=== PATIENT | male | born 1995 | race African-American/Black ===

== ENCOUNTER 2021-11-03 11:05 | Emergency (ER) | payer OTHER ==
[2021-11-03] MEDS ORDERED: ACETAMINOPHEN 500 MG TAB PO ONE (11:33)
[2021-11-03 12:03] LABS: Basophils # (Auto) 0.1 K/mm3 (0.0-0.1); Basophils % (Auto) 0.4 % (0.0-1.8); Eosinophils # (Auto) 0.1 K/mm3 (0.0-0.4); Eosinophils % (Auto) 0.8 % (0.0-4.3); Hematocrit 45.2 % (35.5-45.6); Hemoglobin 15.4 gm/dl (11.8-15.2); Lymphocytes # (Auto) 1.8 K/mm3 (1.2-5.4); Lymphocytes % (Auto) 13.2 % (13.4-35.0); Mean Corpuscular HGB Conc 34 % (32-34); Mean Corpuscular Volume 91 fl (84-94); Monocytes # (Auto) 1.2 K/mm3 (0.0-0.8); Monocytes % (Auto) 9.2 % (0.0-7.3); Platelet Count 237 K/mm3 (140-440); Red Blood Count 4.97 M/mm3 (3.65-5.03); Red Cell Distribution Width 12.8 % (13.2-15.2)
[2021-11-03 12:37] LABS: Alanine Aminotransferase 17 units/L (7-56); Albumin 4.8 g/dL (3.9-5); BUN/Creatinine Ratio 9; Blood Urea Nitrogen 9 mg/dL (9-20); Calcium 9.5 mg/dL (8.4-10.2); Hemolysis Index 5
[2021-11-03] MEDS ORDERED: IBUPROFEN 600 MG TAB PO ONE (15:14)
[2021-11-03] MEDS ORDERED: SULFAMETHOXAZOLE/TRIMETHOPRIM 800/160MG DS TAB PO ONE (15:14)
[2021-11-03] MEDS ORDERED: CLINDAMYCIN 300 MG CAP PO ONE (15:15)
--- NOTE | 2021-11-03 15:19 | Emergency Department Report ---
ED General Adult HPI - General Chief complaint: Wound/Laceration Stated complaint: CELLULITES Source: patient Mode of arrival: Ambulatory Limitations: No Limitations - History of Present Illness Initial comments: Patient is a 25-year-old Iranian male with no past medical history presents to the ED with complaint of acute onset persistent anterior left lower leg pain due to erythematous maculopapular nonfluctuant rash for the last 3 weeks, worse in the last 5 days. Patient states that he was bitten by mosquitoes while visiting [place]. Patient states that he returned from [place] about a week ago and in the last 5 days the pain and the swelling as well as the redness has worsened. Patient also complains of body aches and pains as well as persistent fever for the last 24 hours. Patient denies fall, traumatic injury, nausea and vomiting, low back pain, chest pain, shortness of breath, numbness and tingling or weakness of lower extremities bilaterally. MD Complaint: Anterior left lower leg pain due to erythematous maculopapular rash -: Gradual, week(s) (2) Location: lower extremity (Anterior left lower leg pain) Severity scale (0 -10): 0 Quality: burning, aching, sharp Consistency: constant Improves with: none Worsens with: movement Associated Symptoms: denies other symptoms, fever/chills, headaches, loss of appetite, malaise, rash (Erythematous maculopapular nonfluctuant rash on anterior left lower leg). denies: chest pain, cough, diaphoresis, nausea/vomiting, seizure, shortness of breath, syncope, weakness, other Treatments Prior to Arrival: none - Related Data Previous Rx's Medication Instructions Recorded Last Taken Type Clindamycin [Clindamycin CAP] 300 mg PO Q8H #30 cap 11/03/21 Unknown Rx Ibuprofen [Motrin] 600 mg PO Q8H PRN #30 tablet 11/03/21 Unknown Rx Sulfamethoxazole/Trimethoprim 1 each PO Q12H #20 tab 11/03/21 Unknown Rx [Bactrim DS TAB] Allergies Allergy/AdvReac Type Severity Reaction Status Date / Time No Known Allergies Allergy Verified 11/03/21 11:12 ED Review of Systems ROS: Stated complaint: CELLULITES Other details as noted in HPI Constitutional: chills, fever, malaise Eyes: denies: eye pain, eye discharge, vision change ENT: denies: ear pain, throat pain Respiratory: denies: cough, shortness of breath, wheezing Cardiovascular: denies: chest pain, palpitations Endocrine: no symptoms reported Gastrointestinal: denies: abdominal pain, nausea, diarrhea Genitourinary: denies: urgency, dysuria Musculoskeletal: arthralgia (Left lower leg pain due to erythematous maculopapular nonfluctuant rash). denies: back pain, joint swelling Skin: rash (Erythematous maculopapular nonfluctuant rash on anterior left lower leg), change in color. denies: lesions Neurological: denies: headache, weakness, paresthesias Psychiatric: denies: anxiety, depression Hematological/Lymphatic: denies: easy bleeding, easy bruising ED Past Medical Hx - Medications Home Medications: Home Medications Medication Instructions Recorded Confirmed Last Taken Type Clindamycin [Clindamycin CAP] 300 mg PO Q8H #30 cap 11/03/21 Unknown Rx Ibuprofen [Motrin] 600 mg PO Q8H PRN #30 tablet 11/03/21 Unknown Rx Sulfamethoxazole/Trimethoprim 1 each PO Q12H #20 tab 11/03/21 Unknown Rx [Bactrim DS TAB] ED Physical Exam - General Limitations: No Limitations General appearance: alert, in no apparent distress - Head Head exam: Present: atraumatic, normocephalic, normal inspection - Eye Eye exam: Present: normal appearance, PERRL, EOMI Pupils: Present: normal accommodation - ENT ENT exam: Present: normal exam, normal orophraynx, mucous membranes moist, TM's normal bilaterally, normal external ear exam - Neck Neck exam: Present: normal inspection, full ROM. Absent: tenderness - Respiratory Respiratory exam: Present: normal lung sounds bilaterally. Absent: respiratory distress, wheezes, rales, rhonchi, stridor, chest wall tenderness, accessory muscle use, decreased breath sounds, prolonged expiratory - Cardiovascular Cardiovascular Exam: Present: normal rhythm, tachycardia, normal heart sounds. Absent: systolic murmur, diastolic murmur, rubs, gallop - GI/Abdominal GI/Abdominal exam: Present: soft, normal bowel sounds. Absent: tenderness, guarding, rebound, hyperactive bowel sounds, hypoactive bowel sounds, organomegaly - Extremities Exam Extremities exam: Present: normal inspection, full ROM, tenderness (Palpable anterior proximal left lower leg tenderness due to erythematous maculopapular no nfluctuant rash), normal capillary refill. Absent: pedal edema, joint swelling, calf tenderness - Back Exam Back exam: Present: normal inspection, full ROM. Absent: tenderness, CVA tenderness (R), CVA tenderness (L), muscle spasm, paraspinal tenderness, verte bral tenderness, rash noted - Neurological Exam Neurological exam: Present: alert, oriented X3, CN II-XII intact, normal gait - Psychiatric Psychiatric exam: Present: normal affect, normal mood - Skin Skin exam: Present: warm, dry, intact, rash (Erythematous maculopapular nonfluctuant rash on proximal anterior left lower leg), erythema. Absent: normal color, urticaria, vesicles ED Course Vital Signs 11/03/21 11/03/21 11:07 13:20 Temperature 101 F H 99.5 F Pulse Rate 109 H Respiratory 20 Rate Blood Pressure 143/95 [Right] O2 Sat by Pulse 98 Oximetry ED Medical Decision Making - Lab Data Result diagrams: 11/03/21 11:31 11/03/21 11:31 - Medical Decision Making This is a 25-year-old Iranian male with no past medical history presents to the ED with complaint of acute onset persistent anterior left lower leg pain due to erythematous maculopapular nonfluctuant rash for the last 3 weeks, worse in the last 5 days. Patient states that he was bitten by mosquitoes while visiting [place]. Patient states that he returned from [place] about a week ago and in the last 5 days the pain and the swelling as well as the redness has worsened. Patient also complains of body aches and pains as well as persistent fever for the last 24 hours. In the ED, patient is alert and oriented x3 and is not in any distress. Patient however is tachycardic and febrile in triage. Patient was treated for fever and pain in the ED. Patient was received oral antibiotics in the ED. Lab test results were reviewed and are all nonactionable except for acute leukocytosis of 13,500. On reevaluation, patient's pain is well controlled medication. Tachycardia and fever resolved with medication. Patient will discharge home on pain medications and antibiotics and advised to follow-up with his primary care physician in 7 to 10 days for reevaluation or return to the ED immediately if symptoms get worse. - Differential Diagnosis Cellulitis; insect bite; cutaneous abscess; folliculitis; Critical care attestation.: If time is entered above; I have spent that time in minutes in the direct care of this critically ill patient, excluding procedure time. ED Disposition Clinical Impression: Cellulitis of left lower extremity, Cutaneous abscess of left lower extremity Insect bite of left lower leg with infection Qualifiers: Encounter type: initial encounter Qualified Code(s): S80.862A - Insect bite (nonvenomous), left lower leg, initial encounter; L08.9 - Local infection of the skin and subcutaneous tissue, unspecified; W57.XXXA - Bitten or stung by nonvenomous insect and other nonvenomous arthropods, initial encounter Disposition: HOME / SELF CARE / HOMELESS Is pt being admited?: No Does the pt Need Aspirin: No Condition: Stable Instructions: Skin Abscess, [id number], Cellulitis, Adult, [id number], Insect Bite, Adult, [id number] Additional Instructions: Take medication with food, drink plenty of fluids and follow-up with your primary care physician in 7 to 10 days for reevaluation. Return to the ED immediately if symptoms get worse. Prescriptions: Sulfamethoxazole/Trimethoprim [Bactrim DS TAB] 1 each PO Q12H #20 tab Clindamycin [Clindamycin CAP] 300 mg PO Q8H #30 cap Ibuprofen [Motrin] 600 mg PO Q8H PRN #30 tablet PRN Reason: Pain Referrals: [facility] [Provider Group] - 7-10 days Time of Disposition: 15:23 Print Language: SLOVENIAN
[2021-11-03 16:28] VITALS: BP 133/77
== END 2021-11-03 16:26 | disposition home or self-care (01) ==
LOC: ED 11:05
DX: S80.862A Insect bite (nonvenomous), left lower leg, initial encounter (principal); L03.116 Cellulitis of left lower limb; L02.416 Cutaneous abscess of left lower limb; W57.XXXA Bitten or stung by nonvenomous insect and other nonvenomous arthropods, initial encounter; Y93.89 Activity, other specified; Y92.89 Other specified places as the place of occurrence of the external cause; Y99.8 Other external cause status
CPT/HCPCS: 36415; 80053; 82140; 85025; 99283